=== PATIENT | female | born 1980 | race Two or more races ===

== ENCOUNTER 2016-08-08 14:54 | Emergency (ER) | payer MEDICAID ==
--- NOTE | 2016-08-09 15:54 | ER ---
ADMIT: 08/08/2016 RM/LOC: ER [facility] MR#: [id number] [facility] [place], [place] [id number] TONO JACKMAN [address] [place] [address] Emergency Room Report SEX: F AGE: 35 : 1980 DATE: 08/08/2016 This 35-year-old with a rash on the right arm. She has had recurrent rashes over her body similar to this over the past several days for which she has seen her primary doctor. See T-sheet for remainder of history and physical. The patient is diagnosed with rashes, encouraged to follow up with the breeding technician as she already has scheduled for this Wednesday. She is given Atarax. DIAGNOSIS: Rash. Lowell Saenz MD/ stephie JOB #: [id number] CC: Zaheer Morrison MD, Attending Physician Terry Dunn MD, Family Physician
== END 2016-08-08 15:45 | disposition home or self-care (01) ==
LOC: ER 14:54
DX: R21 Rash and other nonspecific skin eruption (principal); Z98.51 Tubal ligation status